=== PATIENT | female | born 1950 | race Caucasian/White ===

== ENCOUNTER 2021-08-05 03:24 | Emergency (ER) | payer BC ==
[~2021-08-05] VITALS: Ht 154.9 cm; Wt 69.3 kg
[2021-08-05] MEDS ORDERED: HYDROcodone/acetaminophen 5mg/325mg tablet PO ONE (04:05)
--- NOTE | 2021-08-05 05:02 | NUR ---
patient in the er with complaints of pain to the right leg that wrap aound the buttock down the leg, denies any numbness and tingling states its a sharp pain 910 when she arrived. she states that she has been feeling like this for the last couple of days, she took gabapentin without relief
[2021-08-05] MEDS ORDERED: ketorolac trometh. 30mg/ml inj. IM ONE (06:20)
[2021-08-05 06:54] VITALS: BP 179/93
== END 2021-08-05 07:45 | disposition home or self-care (01) ==
LOC: ER 03:25
DX: M54.31 Sciatica, right side (principal); E11.42 Type 2 diabetes mellitus with diabetic polyneuropathy; G89.29 Other chronic pain; Z79.4 Long term (current) use of insulin; Z90.49 Acquired absence of other specified parts of digestive tract; Z90.89 Acquired absence of other organs; Z90.710 Acquired absence of both cervix and uterus; Z98.890 Other specified postprocedural states
CPT/HCPCS: 72100; 82948; 96372; 99283; J1885